=== PATIENT | male | born 1965 | race Caucasian/White ===

== ENCOUNTER 2017-11-02 01:38 | Emergency (ER) | payer BC, OTHER ==
[2017-11-02] MEDS ORDERED: ACTIVATED CHARCOAL PELLETS 25 GM BTTL PO ONE (01:43)
[2017-11-02] MEDS ORDERED: SODIUM CHLORIDE 0.9% (FLUSH) 10 ML SYG IV PRN (01:43)
[2017-11-02] MEDS ORDERED: MULTIPLE VITAMIN INJ 10 ML, THIAMINE HCL INJ 100 MG in SODIUM CHLORIDE 0.9% 1000ML 1,00... IVS ONE (02:03)
--- NOTE | 2017-11-02 02:11 | ED.PDOC ---
History of Present Illness - General Chief Complaint: Drug or Alcohol Abuse Stated Complaint: has been drinking and took prozacs Time Seen by Provider: 11/02/17 02:01 Exam Limitations: no limitations - History of Present Illness Initial Comments: Major Tariq 52 y/o male brought by family they stated that he had been drinking alcoholic beverages the whole day and taken 6 tablets of Prozac-20 mg tonight stating to family that he wants to end it all and also stated that might make him go to sleep.He has history of anxiety and sometimes depression which according to him Prozac sometimes helps.But also mentioned that he has chronic back ache previously was prescribed steroids which relived his back ache and also makes him happy.Then he was referred to supervisor painting which prescribed him meloxicam and gabapentin not helping him with his pain.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 Timing/Duration: just prior to arrival, getting worse Severity: moderate Episode Description: see hpi Associated Symptoms: suicidal ideation Allergies/Adverse Reactions: Allergies NO KNOWN ALLERGY Allergy (Verified 11/02/17 01:43) Home Medications: Ambulatory Orders Fluoxetine HCl 20 mg PO DAILY 07/26/14 Albuterol Sulfate [Proair Hfa] 2 puff INH Q6H PRN #1 07/28/14 predniSONE 20 mg PO DAILY #15 tab 07/28/14 Allopurinol [Zyloprim] 100 mg PO DAILY 11/02/17 Diltiazem HCl [Dilt-Xr] 120 mg PO DAILY 11/02/17 Gabapentin 100 mg PO DAILY 11/02/17 Losartan Potassium 100 mg PO DAILY 11/02/17 Meloxicam 15 mg PO DAILY 11/02/17 Review of Systems - Review of Systems Constitutional: States: no symptoms reported EENTM: States: no symptoms reported Respiratory: States: no symptoms reported Cardiology: States: no symptoms reported Gastrointestinal/Abdominal: States: no symptoms reported Genitourinary: States: no symptoms reported Musculoskeletal: States: see HPI, back pain - chronic Neurological: States: see HPI, anxiety, depressed, emotional problems Past Medical History (General) - Patient Medical History Hx Seizures: No Hx Stroke: No Hx Asthma: No Hx of COPD: No Hx Cardiac Disorders: No Hx Congestive Heart Failure: No Hx Pacemaker: No Hx Hypertension: Yes Hx Diabetes: No Hx MRSA: No Surgical History: no surgical history - Vaccination History Hx Tetanus, Diphtheria Vaccination: No Hx Influenza Vaccination: No Hx Pneumococcal Vaccination: No - Social History Hx Tobacco Use: No Hx Chewing Tobacco Use: Yes Hx Alcohol Use: Yes Hx Substance Use: No Hx Substance Use Treatment: No Hx Depression: Yes Hx Physical Abuse: No Hx Emotional Abuse: No - Activities of Daily Living Patient Lives Alone: No - family - Female History Patient : No Family Medical History - Family History Mother Family History: Unknown Living Status: Hx Family Asthma: No Hx Family Congestive Heart Failure: No Hx Family Hypertension: Yes Hx Family Stroke: No Hx Cardiac Disease: Yes Hx Family Diabetes: No Hx Family Cancer: Yes - breast Physical Exam - Physical Exam General Appearance: Alert, Comfortable, No apparent distress Eyes, Ears, Nose, Throat Exam: normal ENT inspection Neck: non-tender, supple Respiratory: chest non-tender, lungs clear, normal breath sounds Cardiovascular/Chest: normal peripheral pulses, regular rate, rhythm, systolic murmur - g 2/6 Peripheral Pulses: radial,right: 2+, radial,left: 2+ Gastrointestinal/Abdominal: normal bowel sounds, non tender, soft, no organomegaly Extremities Exam: non-tender, normal range of motion Neurological: alert, oriented x 3 Appearance: appropriate appearance, appropriate insight, no memory impairment Behavior/Eye Contact/Speech: cooperative, good eye contact, normal speech Thoughts/Hallucinations: no apparent hallucination, other - suicidal ideation Progress - Progress Progress: 11/02/17 02:15 Vital Signs - 8 hr 11/02/17 01:40 Temperature 98.3 F Pulse Rate 86 Pulse Rate [ 86 monitor] Respiratory 20 Rate Blood Pressure 181/103 [Left Arm] O2 Sat by Pulse 96 Oximetry 11/02/17 06:12 Seen by [facility] signed contact that he wont harm himself;with good family support outpatient follow up with [facility] 04 Nov 2017 - Results/Orders Results/Orders: 11/02/17 01:43 IV Care:Saline Lock per Protoc QSHIFT Telemetry Q4H Sodium Chloride 0.9% (Flush) [Saline Flush Syringe] 10 ml IV PRN PRN 11/02/17 01:45 EKG STAT 11/02/17 02:18 Referral:Mental Health ONCE 11/02/17 03:38 Sodium Chloride 0.9% 500Ml [NS 500ml] 500 ml IVS .QD 05/27/18 03:51 Sodium Chloride 0.9% 1000ML [Ns 1000 ml] 500 ml IVS ONCE 11/02/17 04:28 ETHYL ALCOHOL (ETOH) Stat 11/02/17 05:00 ACETAMINOPHEN Stat SALICYLATE Stat Laboratory Results - last 24 hr 11/02/17 11/02/17 11/02/17 01:43 01:43 01:43 WBC 8.9 RBC 5.22 Hgb 16.0 Hct 47.6 MCV 91.1 MCH 30.7 MCHC 33.7 RDW 15.3 H Plt Count 178 MPV 9.9 Absolute Neuts (auto) 8.00 H Absolute Lymphs (auto) 0.50 L Absolute Monos (auto) 0.30 Absolute Eos (auto) 0.00 Absolute Basos (auto) 0.00 Neutrophils % 90.3 H Lymphocytes % 6.1 L Monocytes % 3.0 Eosinophils % 0.1 L Basophils % 0.5 PT 11.1 INR 0.960 PTT (SP) 35.5 Sodium 140 Potassium 3.9 Chloride 109 Carbon Dioxide 24 Anion Gap 10.9 L BUN 18 Creatinine 0.83 BUN/Creatinine Ratio 21.7 H Random Glucose 174 H Serum Osmolality 285.5 Uric Acid Calcium 8.4 Total Bilirubin 0.3 AST 14 ALT 20 Alkaline Phosphatase 75 Creatine Kinase 71 CK-MB (CK-2) 2.9 CK-MB (CK-2) % Not Reportable Troponin I < 0.02 Serum Total Protein 6.4 Albumin 3.6 Globulin 2.8 Albumin/Globulin Ratio 1.3 Urine Color Urine Appearance Urine pH Ur Specific [place] Urine Protein Urine Glucose (UA) Urine Ketones Urine Blood Urine Nitrite Urine Bilirubin Urine Urobilinogen Ur Leukocyte Esterase Urine RBC Urine WBC Ur Epithelial Cells Urine Bacteria Salicylates < 4.0 Urine Opiates Screen Acetaminophen < 10.0 L Urine Barbiturates Ur Phencyclidine Scrn U Amphetamin/Meth Scrn U Benzodiazepines Scrn U Cocaine Metab Screen U Cannabinoids Screen Ethyl Alcohol 11/02/17 11/02/17 11/02/17 01:43 01:43 03:11 WBC RBC Hgb Hct MCV MCH MCHC RDW Plt Count MPV Absolute Neuts (auto) Absolute Lymphs (auto) Absolute Monos (auto) Absolute Eos (auto) Absolute Basos (auto) Neutrophils % Lymphocytes % Monocytes % Eosinophils % Basophils % PT INR PTT (SP) Sodium Potassium Chloride Carbon Dioxide Anion Gap BUN Creatinine BUN/Creatinine Ratio Random Glucose Serum Osmolality Uric Acid 7.0 Calcium Total Bilirubin AST ALT Alkaline Phosphatase Creatine Kinase CK-MB (CK-2) CK-MB (CK-2) % Troponin I Serum Total Protein Albumin Globulin Albumin/Globulin Ratio Urine Color Urine Appearance Urine pH Ur Specific [place] Urine Protein Urine Glucose (UA) Urine Ketones Urine Blood Urine Nitrite Urine Bilirubin Urine Urobilinogen Ur Leukocyte Esterase Urine RBC Urine WBC Ur Epithelial Cells Urine Bacteria Salicylates Urine Opiates Screen Negative Acetaminophen Urine Barbiturates Negative Ur Phencyclidine Scrn Negative U Amphetamin/Meth Scrn Negative U Benzodiazepines Scrn Negative U Cocaine Metab Screen Negative U Cannabinoids Screen Negative Ethyl Alcohol 227.00 H* 11/02/17 04:14 WBC RBC Hgb Hct MCV MCH MCHC RDW Plt Count MPV Absolute Neuts (auto) Absolute Lymphs (auto) Absolute Monos (auto) Absolute Eos (auto) Absolute Basos (auto) Neutrophils % Lymphocytes % Monocytes % Eosinophils % Basophils % PT INR PTT (SP) Sodium Potassium Chloride Carbon Dioxide Anion Gap BUN Creatinine BUN/Creatinine Ratio Random Glucose Serum Osmolality Uric Acid Calcium Total Bilirubin AST ALT Alkaline Phosphatase Creatine Kinase CK-MB (CK-2) CK-MB (CK-2) % Troponin I Serum Total Protein Albumin Globulin Albumin/Globulin Ratio Urine Color Yellow Urine Appearance Clear Urine pH 6.0 Ur Specific [place] 1.020 Urine Protein Negative Urine Glucose (UA) Negative Urine Ketones Negative Urine Blood Negative Urine Nitrite Negative Urine Bilirubin Negative Urine Urobilinogen 0.2 Ur Leukocyte Esterase Negative Urine RBC 0 Urine WBC 0-1 Ur Epithelial Cells 0-1 Urine Bacteria 0 Salicylates Urine Opiates Screen Acetaminophen Urine Barbiturates Ur Phencyclidine Scrn U Amphetamin/Meth Scrn U Benzodiazepines Scrn U Cocaine Metab Screen U Cannabinoids Screen Ethyl Alcohol - EKG/XRAY/CT EKG: Sinus, nonspecific ST T wave Chg - 11/111,avf Comments: HR-83 Departure - Departure Clinical Impression: Alcohol abuse, unspecified, Suicidal ideation Overdose of medication Qualifiers: Encounter type: initial encounter Injury intent: undetermined intent Qualified Code(s): T50.904A - Poisoning by unspecified drugs, medicaments and biological substances, undetermined, initial encounter Time of Disposition: 06:16 Disposition: Discharge to Home or Self Care Condition: Fair Departure Forms: ED Discharge - Pt. Copy, Patient Portal Self Enrollment Instructions: DI for Drug Overdose in Adults, DI for Alcohol Abuse and Alcoholism, Depression, Depression in Men: How Is It Different?, DI for Depression -- Adult Home Medications: Ambulatory Orders Fluoxetine HCl 20 mg PO DAILY 07/26/14 Albuterol Sulfate [Proair Hfa] 2 puff INH Q6H PRN #1 07/28/14 predniSONE 20 mg PO DAILY #15 tab 07/28/14 Allopurinol [Zyloprim] 100 mg PO DAILY 11/02/17 Diltiazem HCl [Dilt-Xr] 120 mg PO DAILY 11/02/17 Gabapentin 100 mg PO DAILY 11/02/17 Losartan Potassium 100 mg PO DAILY 11/02/17 Meloxicam 15 mg PO DAILY 11/02/17 Additional Instructions: Continue with all home medications follow up with [facility] and primary Md 04 Nov 2017;Return to ER as needed;Call National Suicide Prevention Lifeline for any suicidal thoughts/ideation
[2017-11-02] MEDS ORDERED: SODIUM CHLORIDE 0.9% 1000ML 1,000 ML ONE ×2 (02:26→03:43)
[2017-11-02] MEDS ORDERED: THIAMINE HCL INJ 100 MG/ML VIAL ONE (02:26)
[2017-11-02] MEDS ORDERED: MULTIPLE VITAMIN 10 ML VIAL ONE (02:27)
[2017-11-02 02:30] VITALS: TEMP 98.3; O2SAT 96
[2017-11-02] MEDS ORDERED: SODIUM CHLORIDE 0.9% 500ML 500 ML IVS PRN (03:38)
[2017-11-02] MEDS ORDERED: BUMETANIDE 0.25 MG/ML VIAL IV ONE (03:39)
[2017-11-02] MEDS ORDERED: SODIUM CHLORIDE 0.9% 1000ML 500 ML IVS ONE (03:51)
[2017-11-02 06:17] VITALS: BP 176/94
== END 2017-11-02 06:40 | disposition home or self-care (01) ==
LOC: ER 01:38
DX: R45.851 Suicidal ideations (principal); T43.224A Poisoning by selective serotonin reuptake inhibitors, undetermined, initial encounter; F10.129 Alcohol abuse with intoxication, unspecified; Y90.7 Blood alcohol level of 200-239 mg/100 ml; G89.29 Other chronic pain; M54.9 Dorsalgia, unspecified; F17.220 Nicotine dependence, chewing tobacco, uncomplicated; F32.9 Major depressive disorder, single episode, unspecified; Z79.899 Other long term (current) drug therapy
CPT/HCPCS: 36415; 80053; 80307; 80320; 80329; 81001; 82550; 82553; 84484; 84550; 85025; 85610; 85730; 93005; J3411; J3490; J7030

== ENCOUNTER → 2017-11-28 | Outpatient (CLI) | payer BC ==
--- NOTE | 2017-11-28 17:45 | MRI ---
EXAM DESCRIPTION: Lumbar Spine w/o Contrast : Magnetic Resonance Imaging. CLINICAL HISTORY: RADICULOPATHY COMPARISON: None. TECHNIQUE: Multiplanar, multiple standard sequences, non contrast MRI, lumbar spine. FINDINGS: L5-S1: Minimal disc desiccation and minimal disc space loss. Bilateral Modic type II endplate reactive changes. Schmorl's node superior S1 endplate. Mild canal narrowing with no significant disc bulging. Bilateral mild to moderate foraminal narrowing. Bilateral facet arthrosis and ligament hypertrophy. L4-5: Disc desiccation minimal disc space loss. Schmorl's nodes in the endplates. Modic type II endplate reactive changes anterior. Also posterior L4 endplate. Posterior broad-based 3 mm disc bulge. Bilateral facet arthrosis and ligament hypertrophy. AP canal diameter 8 to 9 mm. Moderate narrowing of the bilateral foramina. L3-4: Disc desiccation and minimal disc space loss. Minimal anterior bulging. Anterior endplate Modic type II changes. Small Schmorl's nodes in the endplates. Posterior ligament hypertrophy and minimal facet arthrosis with moderate canal narrowing. Bilateral neural foraminal narrowing. L2-3: Disc desiccation concavities in the endplates and minimal anterior bulging. Disc space preserved. No posterior bulging. Posterior elements unremarkable. Mild canal narrowing which may be due to length of the pedicles. L1-2: Disc desiccation minimal endplate irregularities minimal anterior bulging. No posterior bulge. Posterior elements unremarkable. Canal and foramina are patent. T12-L1: Disc desiccation and minimal disc space loss. No bulging. Conus terminates at this level. Canal patent. Mild right foraminal narrowing. Minimal spondylosis in the T11-T12 endplates with no posterior disc bulge or canal stenosis or cord impingement. No scoliosis. Lordosis maintained. Paravertebral soft tissues unremarkable.. Normal marrow signal in the remaining vertebral bodies and the posterior elements. Vertebral bodies are not compressed at any level. IMPRESSION: 1. Posterior L4-5 disc bulge with desiccation. Endplate spondylosis. Posterior facet arthrosis and ligament hypertrophy with mild central canal stenosis. Bilateral foraminal narrowing. 2. L3-4 disc desiccation and endplate changes. Mild to moderate canal narrowing. Posterior elements hypertrophy. Facet arthrosis. Bilateral foramina are patent. 3. L5-S1 disc desiccation canal and foraminal narrowing but no stenosis. Facet arthrosis. Electronically signed by: Andrew Weiss MD 11/28/2017 5:44 PM CDT
== END ==
LOC: MRI 09:06
PROVIDERS: ATTEND Nurse Practitioner Family
DX: M51.16 Intervertebral disc disorders with radiculopathy, lumbar region (principal)

== ENCOUNTER → 2018-03-30 | Outpatient (CLI) | payer BC | LOC: LAB.O 16:03 | DX: M19.90 Unspecified osteoarthritis, unspecified site (principal) ==

== ENCOUNTER → 2020-04-05 | Outpatient (CLI) | payer OTHER | LOC: YCFC.O 14:48 | PROVIDERS: ATTEND Family Medicine | DX: R50.9 Fever, unspecified (principal) ==